=== PATIENT | female | born 1985 | race African-American/Black ===

== ENCOUNTER 2018-09-27 08:42 | Emergency (ER) | payer BC, OTHER ==
[~2018-09-27] VITALS: Ht 177.8 cm; Wt 93.0 kg
[~2018-09-27 08:42] MED LIST: CIPROFLOXACIN500 M1 PO; LANOLIN56 GM; MONONESSA1 EACH; NORCO 5-325 TA1 EACH PO; PRENATAL; TUCKS MEDICATE1 EAC1
[2018-09-27] MEDS ORDERED: TRAMADOL 50 MG50 MG PO (09:56)
[2018-09-27] MEDS ORDERED: NAPROSYN500 MG PO (09:56)
[2018-09-27 09:57] VITALS: BP 141/74
== END 2018-09-27 09:57 | disposition home or self-care (01) ==
LOC: ER 08:42
DX: S40.011A Contusion of right shoulder, initial encounter (principal); S09.8XXA Other specified injuries of head, initial encounter; E28.2 Polycystic ovarian syndrome; Z90.89 Acquired absence of other organs; Z91.040 Latex allergy status; W01.198A Fall on same level from slipping, tripping and stumbling with subsequent striking against other object, initial encounter; Y92.89 Other specified places as the place of occurrence of the external cause; Y93.89 Activity, other specified; Y99.8 Other external cause status

== ENCOUNTER → 2019-02-10 | Outpatient (CLI) | payer BC, OTHER ==
[~2019-02-10] MED LIST changes: +NAPROSYN500 MG PO; +TRAMADOL 50 MG50 MG PO
== END ==
LOC: ULTRA 13:26
DX: E07.89 Other specified disorders of thyroid (principal); E05.90 Thyrotoxicosis, unspecified without thyrotoxic crisis or storm; E04.2 Nontoxic multinodular goiter